=== PATIENT | female | born 1990 | race Caucasian/White ===

== ENCOUNTER → 2021-11-04 11:00 | Outpatient (BNVA) | payer MEDICAID, SELFPAY | PROVIDERS: Family Provider Family Medicine; Visit Provider Nurse Practitioner Family | DX: Z32.01 Encounter for pregnancy test, result positive (principal); R39.9 Unspecified symptoms and signs involving the genitourinary system; F32.A Depression, unspecified; B00.1 Herpesviral vesicular dermatitis | CPT/HCPCS: 81000; 84702; 87491; 87591; 87661 ==

== ENCOUNTER → 2022-01-06 09:14 | Outpatient (BNVA) | payer MEDICAID, SELFPAY | PROVIDERS: Family Provider Family Medicine; Visit Provider Specialist | DX: G56.03 Carpal tunnel syndrome, bilateral upper limbs (principal) | CPT/HCPCS: 73110 ==

== ENCOUNTER 2022-01-06 15:02 | Outpatient (CLI) | payer MEDICAID, SELFPAY | END 2022-01-06 15:03 | disposition home or self-care (01) | LOC: SPT 15:03 | PROVIDERS: Family Provider Family Medicine; Visit Provider Specialist | DX: G56.03 Carpal tunnel syndrome, bilateral upper limbs (principal) | CPT/HCPCS: 97760; L3908 ==

== ENCOUNTER → 2022-01-29 15:30 | Outpatient (BNVA) | payer MEDICAID, SELFPAY | PROVIDERS: Family Provider Family Medicine; Visit Provider Psychiatry & Neurology Neurology | DX: F33.2 Major depressive disorder, recurrent severe without psychotic features (principal) | CPT/HCPCS: 80061; 83036 ==

== ENCOUNTER 2022-02-11 10:29 | Day surgery (SDC) | payer MEDICAID, SELFPAY ==
[2022-02-03 15:51] VITALS: BP 109/73; BMI 37.2
[2022-02-11] VITALS (14 sets, daily range): BP systolic 103–127; BP diastolic 56–80; PULSE 66–82; RESP 13–25; TEMP 36.1–36.6; O2SAT 94–98
[2022-02-11 11:01] LABS: OR HCG Qualitative Urine Negative (Negative)
[2022-02-11] MEDS: sodium chloride 0.9% 1,000 ML 30 ML IV (11:10)
[2022-02-11] MEDS: CELEcoxib 200 mg Capsule 400 MG PO (12:00)
--- NOTE | 2022-02-11 12:02 | W.PM.OPSUD ---
Surgery/Procedure H&P Update DATE OF PROCEDURE: February 11, 2022 DATE H&P PERFORMED: 02/05/22 H&P UPDATE INFORMATION: I have reviewed H&P completed within last 30 days, I have examined patient prior to procedure, No changes to prior documentation and H&P is in [facility] EMR on date indicated PREOP DIAGNOSIS: Right carpal tunnel syndrome PLANNED PROCEDURE: Operation Date: 02/11/22 12:25 Proposed Procedures p RIGHT CARPAL TUNNEL RELEASE [id number],G56.00(Right) - Tiffanie Haque MD Related Problem List Diagnoses (1) Carpal tunnel syndrome on right:
[2022-02-11] MEDS: acetaminophen 1,000 MG/100 ML PIGGYBACK 400 MG IV (12:06)
--- NOTE | 2022-02-11 12:36 | ANES.PREANE2 ---
Pre-Anesthetic Assessment Height/Weight: Height 1.52 m Weight 90.718 kg Temp Pulse Resp BP Pulse Ox O2 Del Method 97.1 F L 82 15 119/79 97 02/11/22 10:54 02/11/22 10:54 02/11/22 10:54 02/11/22 10:54 02/11/22 10:54 02/11/22 10:54 Preop Diagnosis: Right carpal tunnel syndrome Operation Date: 02/11/22 12:25 Proposed Procedures p RIGHT CARPAL TUNNEL RELEASE [id number],G56.00(Right) - Tiffanie Haque MD Familial anesthetic complications: none Was Beta Patric taken within 24 hours: N/A Was Clonidine taken within 24 hours: N/A Last intake: Intake Last Liquid Date 02/10/22 Last Liquid Time 22:30 Last Solid Date 02/10/22 Last Solid Time 23:30 Social Tobacco and No alcohol Drug use hx Exam alert, oriented x 3 and regular rate & rhythm Airway Submandibular: within normal limits Cervical ROM: within normal limits Mallampati: Class II Dentition: chipped Pulmonary Chronic Obstructive Pulmonary Disease Metabolic Morbid Obesity Anesthetic Plan ASA status: 3 Anesthesia: Choice Medications/Allergies Home Medications Medication Instructions Recorded Confirmed Last Taken Type bupropion HCl 150 mg tablet,12 hr 150 mg PO BID 11/13/21 02/11/22 02/11/22 History sustained-release (Wellbutrin SR) COCK UP SPLINT #2 ea 01/06/22 02/11/22 Unknown Rx mirtazapine 30 mg tablet (Remeron) 30 mg PO DAILY 01/06/22 02/11/22 02/10/22 History naltrexone 50 mg tablet 50 mg PO DAILY 01/06/22 02/11/22 02/11/22 History ibuprofen 600 mg tablet 600 mg PO Q6H PRN Pain 01/29/22 02/11/22 02/09/22 History Allergies Allergy/AdvReac Type Severity Reaction Status Date / Time tramadol [From Ultram] Allergy Severe siezure Verified 02/11/22 12:11 diphenhydramine Allergy Intermediate increased Verified 02/11/22 12:11 [From Benadryl] heart rate Current Medications Generic Name Dose Route Start Last Admin Trade Name Freq PRN Reason Stop Dose Admin Sodium Chloride 1,000 mls @ 30 mls/hr 02/11/22 10:45 02/11/22 11:10 Sodium Chloride 0.9% IV 02/12/22 10:44 30 mls/hr .Q24H ELVIA Administration PFSH Anesthesia Medical History Psychiatric care Family History Other Diabetes Stroke Suicide Social History Smoking and tobacco status: current every day smoker cigarettes Packs smoked per day: 0.5 Years cigarettes smoked: 16 and e-cigarettes E-Cigarette Details: e-cigarette and with nicotine E-cig/vape details: 1 pod last a day Quit status (tobacco): considering quitting Second hand smoke exposure: Yes Smoking risk assessment/counseling performed?: Yes Tobacco counseling given: counseling >10 minutes Alcohol intake: former Year of sobriety/quit date alcohol: 2003 Adopted: No Caregiver/support person: No Lives independently: No Household members: other Details: transitional house Housing: Other Details: transitional housing Marital status: Single Number of children: 3 Number of grandchildren: 0 Highest education level completed: Associate Degree: Occupational, Technical, Vocational Program service: No Current occupational status: other Details: voc rehab Current occupational exposures/hazards: No 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
[2022-02-11] MEDS: ceFAZolin 2,000 MG in sodium chloride 0.9% (plus) 50 ML 100 MG IV (13:54)
--- NOTE | 2022-02-11 15:47 | P.OP_ITS ---
Operative Report Date of procedure: February 11, 2022 Pre-op diagnosis: Right carpal tunnel syndrome Post-op diagnosis: Right carpal tunnel syndrome Post-op findings: Transition of the motor branch of the median nerve through the transverse carpal ligament. This was preserved. Significant compression across the carpal canal Procedure done: Right carpal tunnel release Pathology: none sent Surgeon: Tiffanie Haque Esthetician/Owner: None Anesthesia: General (LMA, ASA 3. Supraclavicular block placed in recovery.) Estimated blood loss (mL): 2 Tourniquet time (min): 26 (At 250 mmHg) IV fluids (mL): 800 Urine output (mL): 0 (No Ferrer) Complications: None Findings: Significant compression across the carpal canal. Perpendicular motor branch of the median nerve to the thenar eminence. This was preserved. Condition: stable Disposition: PACU (Then to same-day surgery for discharge to home) Brief History: This is an established 31-year-old woman who presented with complaints of bilateral carpal tunnel syndrome. The patient had significant symptoms limiting her activities of daily living. She wished to proceed with operative intervention. Her carpal tunnel was confirmed with nerve conduction studies which were obtained in [place]. Risks and complications were discussed preoperatively and consents were signed in the office. Procedure: The patient was brought to the operating theater. The patient had a general anesthetic per LMA, ASA 3. Postoperatively, and the PACU, the patient had subsequent supraclavicular block as she does not want to take narcotics for pain relief. The tourniquet was elevated to 250 mmHg for a total tourniquet time of 26 minutes. The patient was also given Ancef 2 g preoperatively. The arm was then prepped and draped with DuraPrep in usual fashion with the arm draped free. A surgical pause was performed. At the time of the surgical pause, we confirmed the site and side of surgery. We also confirmed the patient's identity, appropriate and timely administration of preoperative antibiotics and preoperative surgical markings. An incision was then made along the thenar crease. The incision crossed the wrist joint in a curvilinear fashion. Dissection continued through skin and soft tissues using a scalpel. The palmaris longus was identified along with the transverse carpal ligament. Each of these was released carefully to avoid injury to the median nerve. Of note, the motor branch of the median nerve was perpendicular to the transverse carpal ligament and actually proceeded through it. This was preserved during the dissection. We were able to dissect gently into the carpal canal which was noted to be quite tight with significant compression across the median nerve. The median nerve was visualized and was an hourglass shape. The canal was subsequently palpated to assure there was no bony encroachment upon the canal. There was quite thickened fibrous tissue within the canal, and this was opened longitudinally as well. The canal was then palpated distally and proximally to assure that my small finger was passed easily without impingement. Finding this to be so, attention was directed to closure. The wound was irrigated with ropivacaine plain. It was then closed with 3-0 nylon in an interrupted mattress fashion. Sterile dressing was then placed consisting of OpSite, fluffed fluffs, sterile soft roll, and an Acosta wrap. The tourniquet was released after 26 minutes. There were no complications. There were no specimens. The procedure was well tolerated. Plan is the patient will be discharged home. Related Problem List Diagnoses (1) Carpal tunnel syndrome on right:
--- NOTE | 2022-02-11 15:59 | PC.NURSE ---
1525 time out for supra clavicular nerve block completed
--- NOTE | 2022-02-11 16:09 | ANES.PROC ---
Anesthesia Procedures Procedure/Date: 02/11/22 Nerve Block ^: Nerve Block 1: Main Anesthesia: general anesthesia Time Out Performed: Yes Consent: requested by attending/covering physician, from patient, risks and benefits reviewed and patient agrees to proceed Nerve block location: supraclavicular (right) Anesthesia monitors applied: pulse oximetry, EKG, BP cuff and oxygen Nerve block position: semi sitting Anesthetic Used: ropivicaine 0.5% Amount of anesthesia used (mL): 20 Ultrasound used to: recognize landmarks and visualize and ID brachial plexus Nerve Stimulator Used?: No Interscalene/Femoral BLK: 2 stimuplex 22 g needle used for position and inplane approach Injection: neg aspiration of heme Patient Tolerated Procedure: well Complications: none
--- NOTE | 2022-02-11 16:10 | ANE.PACU2 ---
Inpatient post-anesthesia follow up: Airway intact: Yes Vital signs: Temperature 98 F Pulse Rate 81 Respiratory Rate 16 Blood Pressure 112/76 Pulse Oximetry 95 Oxygen Delivery Me thod Room Air Oxygen Flow Rate Fraction of Inspir ed Oxygen Hydration adequate: Yes Nausea and vomiting: No Pain level: 5 Mental status: Baseline Additional Comments: Surgeon requested upper extremity block to help with postop pain b/c we were avoiding narcotics at patient request given opioid abuse hx. Pt. agreed to proceed with right supraclavicular blk.
== END 2022-02-11 16:30 | disposition home or self-care (01) ==
PROVIDERS: Anesthesiology; PCP Family Medicine; Visit Provider Specialist
PROC: (CPT 64721; principal; 2022-02-11 12:15)
DX: G56.01 Carpal tunnel syndrome, right upper limb (principal); J44.9 Chronic obstructive pulmonary disease, unspecified; E66.01 Morbid (severe) obesity due to excess calories; Z68.39 Body mass index [BMI] 39.0-39.9, adult; F17.210 Nicotine dependence, cigarettes, uncomplicated
CPT/HCPCS: 64721; 81025; 84703; J0131; J0690; J1100; J1200; J1885; J2250; J2405; J2704; J2795; J3490; J7030

== ENCOUNTER 2022-03-20 11:00 | Day surgery (SDC) | payer MEDICAID, SELFPAY ==
[2022-02-03 15:51] VITALS: BP 109/73; BMI 37.2
[2022-03-18 12:08] VITALS: BMI 43.5
[2022-03-20 12:00] VITALS: BP 124/77; PULSE 87; RESP 18; TEMP 36.6; O2SAT 97
[2022-03-20] MEDS: acetaminophen 1,000 MG/100 ML PIGGYBACK 400 MG IV (12:14)
[2022-03-20] MEDS: sodium chloride 0.9% 1,000 ML 30 ML IV (12:16)
[2022-03-20] MEDS: CELEcoxib 200 mg Capsule 400 MG PO (12:16)
[2022-03-20 12:25] LABS: OR HCG Qualitative Urine Negative (Negative)
--- NOTE | 2022-03-20 12:57 | ANES.PREANE2 ---
Pre-Anesthetic Assessment Height/Weight: Height 1.52 m Weight 101.151 kg Temp Pulse Resp BP Pulse Ox O2 Del Method 97.9 F 87 18 124/77 97 03/20/22 12:00 03/20/22 12:00 03/20/22 12:00 03/20/22 12:00 03/20/22 12:00 03/20/22 12:04 Preop Diagnosis: Left Carpal Tunnel and deQuervain's tenosynovitis Operation Date: 03/20/22 14:55 Proposed Procedures p LEFT CARPAL TUNNEL RELEASE WITH DE QUERVAINS RELEASE [id number] G56.00,M65.4(Left) - Tiffanie Haque MD s Dequervain Release(Left) - Tiffanie Haque MD Familial anesthetic complications: none Was Beta Patric taken within 24 hours: N/A Was Clonidine taken within 24 hours: N/A Last intake: Intake Last Liquid Date 03/19/22 Last Liquid Time 23:55 Last Solid Date 03/19/22 Last Solid Time 23:00 Social Tobacco and No alcohol Drug use hx (opioid contract) Exam alert, oriented x 3, clear to auscultation bilaterally and regular rate & rhythm Airway Submandibular: within normal limits Cervical ROM: within normal limits Mallampati: Class II Dentition: chipped Anesthetic Plan ASA status: 3 Anesthesia: General and Regional (specify below) (left supraclavicular blk) Medications/Allergies Home Medications Medication Instructions Recorded Confirmed Last Taken Type bupropion HCl 150 mg tablet,12 hr 150 mg PO BID 11/13/21 03/18/22 03/20/22 History sustained-release (Wellbutrin SR) COCK UP SPLINT #2 ea 01/06/22 03/03/22 Unknown Rx mirtazapine 30 mg tablet (Remeron) 30 mg PO DAILY 01/06/22 03/18/22 03/19/22 History naltrexone 50 mg tablet 50 mg PO DAILY 01/06/22 03/18/22 03/20/22 History ibuprofen 600 mg tablet 600 mg PO Q6H PRN Pain 01/29/22 03/18/22 03/15/22 History Allergies Allergy/AdvReac Type Severity Reaction Status Date / Time tramadol [From [facility]] Allergy Severe siezure Verified 03/18/22 12:04 diphenhydramine Allergy Intermediate increased Verified 03/18/22 12:04 [From Benadryl] heart rate Current Medications Generic Name Dose Route Start Last Admin Trade Name Lela PRN Reason Stop Dose Admin Sodium Chloride 1,000 mls @ 30 mls/hr 03/20/22 11:45 03/20/22 12:16 Sodium Chloride 0.9% IV 03/21/22 11:44 30 mls/hr .Q24H ELVIA Administration PFSH Anesthesia Medical History (Updated 03/17/22 @ 09:21 by Angella Friend) Generalized anxiety disorder Major depressive disorder, recurrent severe without psychotic features Other stimulant dependence, uncomplicated Psychiatric care Family History Other Diabetes Stroke Suicide Social History Smoking and tobacco status: current every day smoker cigarettes Packs smoked per day: 0.5 Years cigarettes smoked: 16 and e-cigarettes E-Cigarette Details: e-cigarette and with nicotine E-cig/vape details: 1 pod last a day Quit status (tobacco): considering quitting Second hand smoke exposure: Yes Smoking risk assessment/counseling performed?: Yes Tobacco counseling given: counseling >10 minutes Alcohol intake: former Year of sobriety/quit date alcohol: 2003 Adopted: No Caregiver/support person: No Lives independently: No Household members: other Details: transitional house Housing: Other Details: transitional housing Marital status: Single Number of children: 3 Number of grandchildren: 0 Highest education level completed: Associate Degree: Occupational, Technical, Vocational Program service: No Current occupational status: other Details: voc rehab Current occupational exposures/hazards: No 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
--- NOTE | 2022-03-20 13:46 | ANES.PROC ---
Anesthesia Procedures Procedure/Date: 03/20/22 Nerve Block ^: Nerve Block 1: Main Anesthesia: general anesthesia Time Out Performed: Yes Consent: requested by attending/covering physician, from patient, risks and benefits reviewed and patient agrees to proceed Nerve block location: interscalene (left) Anesthesia monitors applied: pulse oximetry, EKG, BP cuff and oxygen Nerve block position: semi sitting Anesthetic Used: ropivicaine 0.5% Amount of anesthesia used (mL): 30 Ultrasound used to: recognize landmarks and visualize and ID brachial plexus Nerve Stimulator Used?: No Interscalene/Femoral BLK: 2 stimuplex 22 g needle used for position and inplane approach Injection: neg aspiration of heme Patient Tolerated Procedure: well Complications: none
--- NOTE | 2022-03-20 14:26 | W.PM.OPSUD ---
Surgery/Procedure H&P Update DATE OF PROCEDURE: March 20, 2022 DATE H&P PERFORMED: 03/03/22 H&P UPDATE INFORMATION: I have reviewed H&P completed within last 30 days, I have examined patient prior to procedure, No changes to prior documentation and H&P is in [facility] EMR on date indicated PREOP DIAGNOSIS: Left Carpal Tunnel and deQuervain's tenosynovitis PLANNED PROCEDURE: Operation Date: 03/20/22 14:55 Proposed Procedures p LEFT CARPAL TUNNEL RELEASE WITH DE QUERVAINS RELEASE [id number] G56.00,M65.4(Left) - Tiffanie Haque MD s Dequervain Release(Left) - Tiffanie Haque MD Related Problem List Diagnoses (1) Acute carpal tunnel syndrome of left wrist: (2) De Quervain's tenosynovitis, left:
[2022-03-20] MEDS: ceFAZolin 2,000 MG in sodium chloride 0.9% (plus) 50 ML 100 MG IV (16:02)
[2022-03-20 17:12] VITALS: BP 117/78; PULSE 85; RESP 20; TEMP 36.2; O2SAT 90
[2022-03-20 17:15] VITALS: BP 150/70; PULSE 94; RESP 16; O2SAT 92
--- NOTE | 2022-03-20 17:18 | P.OP_ITS ---
Operative Report Date of procedure: March 20, 2022 Pre-op diagnosis: Left Carpal Tunnel and deQuervain's tenosynovitis Post-op diagnosis: Left Carpal Tunnel and deQuervain's tenosynovitis Post-op findings: Very tight carpal canal and de Quervain's inflammation. Procedure done: Left carpal tunnel release and release of left de Quervain's canal Pathology: none sent Surgeon: Tiffanie Haque Senior Principal: None Anesthesia: General (LMA, ASA 3) Estimated blood loss (mL): 2 Tourniquet time (min): 41 (At 250 mmHg) IV fluids (mL): 500 Urine output (mL): 0 (No Ferrer) Complications: None Findings: Compression across the carpal canal and de Quervain's canal consistent with diagnosis. Condition: stable Disposition: PACU (Then to same-day surgery for discharge to home) Brief History: This is an established 31-year-old woman who presented with complaints of bilateral carpal tunnel syndrome.? The patient had significant symptoms limiting her activities of daily living.? She wished to proceed with operative intervention.? Her carpal tunnel was confirmed with nerve conduction studies which were obtained in [place].? Risks and complications were discussed preoperatively and consents were signed in the office. She previously had her right carpal tunnel release. Upon presentation to the office this time for evaluation, she noted significant de Quervain's tenosynovitis symptoms as well in addition to her left carpal tunnel symptoms. She wished to have both addressed at the same time. We discussed this and plans were made. Consents were signed. Procedure: The patient was brought to the operating theater. The patient had a general anesthetic per LMA, ASA 3.? Preoperatively, the patient had supraclavicular block as she does not want to take narcotics for pain relief. The tourniquet was elevated to 250 mmHg for a total tourniquet time of 41 minutes. The patient was also given Ancef 2 g preoperatively. The arm was then prepped and draped with DuraPrep in usual fashion with the arm draped free. A surgical pause was performed. At the time of the surgical pause, we confirmed the site and side of surgery. We also confirmed the patient's identity, appropriate and timely administration of preoperative antibiotics and preoperative surgical markings. The radial styloid was palpated and an incision was made horizontally approximately 1 cm proximal to the tip of the radial styloid. Dissection continued through the skin and dermis but following that soft tissue blunt dissection was accomplished to prevent injury to the superficial radial nerve branches in the area. We were able to retract these branches and the first dorsal compartment was visualized. The fibrous tissue over the first dorsal compartment was noted to be quite thickened and erythematous. This was released longitudinally using a combination of scalpel and scissors. We then confirmed that each of the tendons at been released. There was one abductor pollicis longus tendons and one extensor pollicis brevis tendon. All of these were released at least a centimeter distal to the radial styloid and proximally as well. There was no further compression across the tendons. The tendons were pul led up out of the tunnel for evaluation. Following this, the wound was irrigated. Attention was then directed to closure. Closure was accomplished with 4-0 Monocryl in a subcuticular suture was placed in a running fashion. We did inject the wound with half percent Marcaine plain for local anesthetic. An incision was then made along the thenar crease. The incision crossed the wrist joint in a curvilinear fashion. Dissection continued through skin and soft tissues using a scalpel. The palmaris longus was identified along with the transverse carpal ligament. Each of these was released carefully to avoid injury to the median nerve.? Of note, the motor branch of the median nerve was perpendicular to the transverse carpal ligament and actually proceeded through it.? This was preserved during the dissection.? We were able to dissect gently into the carpal canal which was noted to be quite tight with significant compression across the median nerve. The median nerve was visualized and was an hourglass shape. The canal was subsequently palpated to assure there was no bony encroachment upon the canal. There was quite thickened fibrous tissue within the canal, and this was opened longitudinally as well. The canal was then palpated distally and proximally to assure that my small finger was passed easily without impingement. Finding this to be so, attention was directed to closure. The wound was irrigated with ropivacaine plain. It was then closed with 3-0 nylon in an interrupted mattress fashion. Sterile dressings was then placed consisting of OpSites, fluffed fluffs, sterile soft roll, and an Acosta wrap. The tourniquet was released after 41 minutes. There were no complications. There were no specimens. The procedure was well tolerated. Plan is the patient will be discharged home. Related Problem List Diagnoses (1) Acute carpal tunnel syndrome of left wrist: (2) De Quervain's tenosynovitis, left:
[2022-03-20 17:20] VITALS: BP 150/70; PULSE 95; RESP 14; O2SAT 94
[2022-03-20 17:34] VITALS: BP 138/89; PULSE 91; RESP 16; TEMP 36.6; O2SAT 93
[2022-03-20 18:18] VITALS: BP 126/79; PULSE 83; RESP 18; O2SAT 98
== END 2022-03-20 18:05 | disposition home or self-care (01) ==
PROVIDERS: Anesthesiology; PCP Family Medicine; Visit Provider Specialist
PROC: (CPT 64721; principal; 2022-03-20 14:45)
PROC: (CPT 25000; 2022-03-20 14:45)
DX: G56.02 Carpal tunnel syndrome, left upper limb (principal); M65.4 Radial styloid tenosynovitis [de Quervain]; F17.210 Nicotine dependence, cigarettes, uncomplicated; F17.290 Nicotine dependence, other tobacco product, uncomplicated
CPT/HCPCS: 25000; 64721; 84703; J0131; J0690; J1100; J2250; J2405; J2704; J2795; J3010; J3490; J7030